=== PATIENT | male | born 1965 | race Caucasian/White ===

== ENCOUNTER → 2017-03-08 | Outpatient (CLI) | payer BC ==
[~2017-03-08] MED LIST: AURALGAN EAR DR14 ML OT; AZITHROMYCIN250 MG PO; NAPROXEN PO; TUSSIONEX PENN480 ML PO; VICODIN PO
--- NOTE | ~2017-03-08 | EKG ---
PATIENT: AVTAR LARSEN UNIT #: [id number] Ventricular Rate: 69 BPM Atrial Rate: 69 BPM P-R Interval: 158 ms QRS Duration: 96 ms Q-T Interval: 366 ms QTC Calculation(Bezet): 392 ms P [place]: 35 degrees Calculated R [place]: 25 degrees Calculated T [place]: 30 degrees Diagnosis Line: Normal sinus rhythm Diagnosis Line: Normal ECG Diagnosis Line: When compared with ECG of 19-AUG-2012 13:32, Diagnosis Line: No significant change was found Diagnosis Line: Confirmed by HE MORRIS MD ([id number]) on Diagnosis Line: 03/09/2017 9:44:26 AM INTERPRETING MD: ALEXANDRA NEIL
--- NOTE | ~2017-03-08 | CR63 ---
[facility] A Service of [facility] & [facility] RADIOLOGY TEXT RESULTS PATIENT: AVTAR LARSEN LOCATION: [facility] : 67 UNIT #: [id number] AGE: [address]: Tashi Marquez MD SEX: M ORDER DR: [id number] [facility] [address] [place], [place] [address] [id number] O MR#: [id number] Acc #: [id number] NAME: AVTAR LARSEN : 1965 SEX: M STUDY DATE/TIME: 03/08/2017 12:12 UNIT: [facility] ROOM: STUDY DESCRIPTION: CR Chest 2 View Attending Physician: Tashi Marquez M.D. Referring Physician: Tashi Marquez M.D. Ordering Physician: Tashi Marquez M.D. Primary Care Physician: Ynes Jo A.P.R.N. MEDICAL IMAGING REPORT This report is preliminary unless electronic signature is present EXAM Chest PA and lateral 03/08/2017 HISTORY Preop removal of right knee patella hardware. Right patella fracture with painful hardware. Shortness of breath today. Benign essential hypertension. Smoking history for over 30 years. FINDINGS The heart is enlarged but stable compared with 11/28/2014. The lungs are hyperinflated with emphysematous and fibrotic changes characteristic of COPD. Prominent atelectasis or fibrosis at the lung bases unchanged. No airspace consolidation is seen. There are no pleural effusions. IMPRESSION 1. Mild cardiac enlargement, stable compared with 11/28/2014. 2. COPD. No active pulmonary disease. Dictated by... Pritesh Torres M.D. THIS IS AN ELECTRONICALLY VERIFIED REPORT Pritesh Torres M.D. at 03/09/2017 8:38 AM KLAUDIA/andres TD: 03/08/2017 13:27 JOB #: [id number] MEDICAL IMAGING REPORT Page 1 of 1 COPY
[2017-03-08 13:01] LABS: URINE APPEARANCE CLEAR; URINE BILIRUBIN NEG (NEG); URINE BLOOD NEG (NEG); URINE COLOR YELLOW; URINE GLUCOSE NEG (NEG); URINE KETONE NEG (NEG); URINE LEUKOCYTE ESTERASE NEG (NEG); URINE NITRATE NEG (NEG); URINE PROTEIN NEG (NEG); URINE UROBILINOGEN 0.2 MG/DL (NEG)
[2017-03-08 13:03] LABS: BASOPHIL# 0.1 X10e3 (0-0.3); BASOPHIL% 0.6 % (0-2.5); EOSINOPHIL# 0.2 X10e3 (0-0.7); EOSINOPHIL% 1.8 % (0.0-7.0); HEMATOCRIT 41.2 % (38.0-50.0); HEMOGLOBIN 13.3 gm/dL (13.0-16.0); LYMPHOCYTE# 3.6 X10e3 (1.0-3.5); LYMPHOCYTE% 35.6 % (17.0-45.0); MEAN CELL VOLUME 88.5 FL (83-96); MEAN CORPUSCULAR HEMOGLOBIN 28.7 PG (28-34); MEAN CORPUSCULAR HGB CONC 32.4 g/dL (30-36); MEAN PLATELET VOLUME 8.9 FL (6.5-11.5); MONOCYTE# 0.5 X10e3 (0-1.0); MONOCYTE% 5.2 % (3.0-12.0); NEUTROPHIL# 5.8 X10e3 (1.5-7.1); NEUTROPHIL% 56.8 % (40-75); PLATELET COUNT 229 X10e3 (140-420); RED BLOOD COUNT 4.65 X10e (3.90-5.60); RED CELL DISTRIBUTION WIDTH 13.8 % (11.0-15.5); WHITE BLOOD COUNT 10.1 X10e3 (4.0-10.5)
[2017-03-08 13:04] LABS: URINE SOURCE CLEAN CATCH
[2017-03-08 13:05] LABS: CULTURE INDICATED? NO
[2017-03-08 13:07] LABS: DIFF IND NO
[2017-03-08 13:25] LABS: BUN/CREATININE RATIO 17.27; CALCIUM SERUM 9.2 mg/dL (8.4-10.2); CREATININE SERUM 1.1 mg/dL (0.6-1.4); GLOM FILT RATE Estimated 77.3 mL/min (>60); POTASSIUM 5.1 mmol/L (3.5-5.1)
== END | disposition home or self-care (01) ==
LOC: CRAD 11:30
PROVIDERS: Orthopaedic Surgery
DX: Z01.818 Encounter for other preprocedural examination (principal); T84.84XA Pain due to internal orthopedic prosthetic devices, implants and grafts, initial encounter; J44.9 Chronic obstructive pulmonary disease, unspecified; I51.7 Cardiomegaly
CPT/HCPCS: 36415; 71020; 80048; 81003; 85025; 93005